=== PATIENT | female | born 1945 | race Caucasian/White ===

== ENCOUNTER 2019-04-07 15:51 | Emergency (ER) | payer OTHER ==
--- OUTSIDE RECORDS SUMMARY | 2019-04-07 15:53 | XMS REPORT ---
:1945 [facility] Address [address] [place] [place] [address] Care Team Providers Name Role Phone Unavailable Unavailable Unavailable Payers Payer Name Policy Type Policy Number Effective Date Expiration Date Problems This patient has no known problems. Allergies, Adverse Reactions, Alerts Allergy Name Allergy Status Severity Reaction(s) Onset Inactive Treating Comments Type Date Date Clinician Sulfa DA Active SV (Sulfonamide 12-05 Antibiotics) 00:00: 00 lisinopril DA Active SV 0 12-05 00:00: 00 ergocalciferol DA Active SV (vitamin D2) 12-05 00:00: 00 aspirin DA Active SV 2019-0 12-05 00:00: 00 meperidine DA Active SV 2018-0 12-05 00:00: 00 atorvastatin DA Active MO 2018-12-05 00:00: 00 [place] [address] 12-05 00:00: 00 Medications This patient has no known medications. Results Test Description Test Time Test Comments Text Results Atomic Results Result Comments BASIC METABOLIC PANEL 2019-01-04 06:09:00 Test Item Value Reference Range Comments SODIUM (test code=NA) 141 mmol/L 136-145 POTASSIUM (test code=K) 4.6 mmol/L 3.5-5.1 CHLORIDE (test code=CL) 104.0 mmol/L 98-107 CARBON DIOXIDE (test code=CO2) 31.3 mmol/L 21-32 GLUCOSE (test code=GLU) 141 mg/dL 70-110 BLOOD UREA NITROGEN (test 17 mg/dL 7-18 code=BUN) GLOMERULAR FILTRATION RATE (test 63.6 >60 Unit of measure: mL/min/1.73 code=GFR) [id number] Range:Healthy Adults >90 mL/min/1.73 m2 For Chronic Kidney Disease: Stage II Mild Decrease in GFR 60-90 Stage III Moderate Decrease in GFR 30-59 Stage IV Severe Decrease in GFR 15-29 Stage V Kidney Failure <15 CREATININE (test code=CREAT) 0.87 mg/dL 0.55-1.30 CALCIUM (test code=CA) 8.6 mg/dL 8.2-10.1 SPECIMEN COMMENT: if pt is still in the [facility] METABOLIC [id number] 06:27:00 Test Item Value Reference Range Comments SODIUM (test code=NA) 142 mmol/L 136-145 POTASSIUM (test code=K) 4.9 mmol/L 3.5-5.1 CHLORIDE (test code=CL) 105.0 mmol/L 98-107 CARBON DIOXIDE (test 30.0 mmol/L 21-32 code=CO2) GLUCOSE (test code=GLU) 143 mg/dL 70-110 BLOOD UREA NITROGEN (test 19 mg/dL 7-18 code=BUN) GLOMERULAR FILTRATION RATE 54.8 >60 Unit of measure: (test code=GFR) mL/min/1.73 [id number] Range:Healthy Adults >90 mL/min/1.73 m2 For Chronic Kidney Disease: Stage II Mild Decrease in GFR 60-90 Stage III Moderate Decrease in GFR 30-59 Stage IV Severe Decrease in GFR 15-29 Stage V Kidney Failure <15 CREATININE (test code=CREAT) 0.99 mg/dL 0.55-1.30 CALCIUM (test code=CA) 8.8 mg/dL 8.2-10.1 HGB [id number] 05:48:00 Test Item Value Reference Range Comments HEMOGLOBIN (test code=HGB) 11.1 g/dL 12-16 HEMATOCRIT (test code=HCT) 34.9 % 37-47 CBC W/AUTO [id number] 12:05:00 Test Item Value Reference Range Comments WHITE BLOOD CELL (test code=WBC) 6.5 K/mm3 5.8-11.0 RED BLOOD CELL (test code=RBC) 4.42 M/mm3 4.2-5.4 HEMOGLOBIN (test code=HGB) 13.1 g/dL 12-16 HEMATOCRIT (test code=HCT) 39.2 % 37-47 MEAN CELL VOLUME (test code=MCV) 89 fL 80-98 MEAN CELL HGB (test code=MCH) 29.6 pg 27-34 MEAN CELL HGB CONCENTRATION (test code=MCHC) 33.4 g/dL 30.8-34.1 RED CELL DISTRIBUTION WIDTH (test code=RDW) 13.2 % 11-16 PLT (test code=PLT) 231 K/mm3 130-400 MEAN PLATELET VOLUME (test code=MPV) 12.2 fL 8.9-12.1 NEUTROPHIL % (test code=NT%) 64.4 % 45-70 LYMPHOCYTE % (test code=LY%) 19.1 % 20-40 MONOCYTE % (test code=MO%) 9.5 % 3-10 EOSINOPHIL % (test code=EO%) 5.1 % 1-5 BASOPHIL % (test code=BA%) 1.4 % 0.0-1.1 NEUTROPHIL # (test code=NT#) 4.19 K/mm3 2.00-7.50 LYMPHOCYTE # (test code=LY#) 1.24 K/mm3 1.50-4.00 MONOCYTE # (test code=MO#) 0.62 K/mm3 0.2-0.8 EOSINOPHIL # (test code=EO#) 0.33 K/mm3 0.04-0.4 BASOPHIL # (test code=BA#) 0.09 K/mm3 0.02-0.10 MANUAL DIFF REQUIRED (test code=MDIFF) NO MANUAL DIFF NUCLEATED RED BLOOD CELL (test code=NRBC) 0 % 0-0 COMPREHENSIVE METABOLIC [id number] 10:56:00 Test Item Value Reference Range Comments SODIUM (test code=NA) 142 mmol/L 136-145 POTASSIUM (test code=K) 4.6 mmol/L 3.5-5.1 CHLORIDE (test code=CL) 104.0 mmol/L 98-107 CARBON DIOXIDE (test code=CO2) 32.0 mmol/L 21-32 GLUCOSE (test code=GLU) 94 mg/dL 70-110 BLOOD UREA NITROGEN (test 16 mg/dL 18 code=BUN) GLOMERULAR FILTRATION RATE 70.3 >60 Unit of measure: (test code=GFR) mL/min/1.73 [id number] Range:Healthy Adults >90 mL/min/1.73 m2 For Chronic Kidney Disease: Stage II Mild Decrease in GFR 60-90 Stage III Moderate Decrease in GFR 30-59 Stage IV Severe Decrease in GFR 15-29 Stage V Kidney Failure <15 CREATININE (test code=CREAT) 0.80 mg/dL 0.55-1.30 TOTAL PROTEIN (test code=PROT) 6.2 g/dL 6.4-8.2 ALBUMIN (test code=ALB) 3.6 g/dL 3.4-5.0 GLOBULIN (test code=GLOB) 2.6 g/dL 2.2-4.2 ALBUMIN/GLOBULIN RATIO (test 1.4 0.7-2.0 code=A/G) CALCIUM (test code=CA) 9.3 mg/dL 8.2-10.1 BILIRUBIN TOTAL (test 0.43 mg/dL 0.2-1.00 code=BILT) SGOT/AST (test code=AST) 22.0 U/L 15-37 SGPT/ALT (test code=ALT) 19.0 U/L 12-78 Please note new normal range. ALKALINE PHOSPHATASE TOTAL 48 U/L 46-116 (test code=ALKP) PROTHROMBIN [id number] 10:56:00 Test Item Value Reference Range Comments PROTHROMBIN TIME PATIENT 13.7 secs 10.1-12.5 (test code=PTP) INTERNATIONAL NORMAL RATIO 1.21 <2.0 RECOMMENDED THERAPEUTIC RANGE (test code=INR) FOR ORAL ANTICOAGULANTTREATMENT: CONDITION INRProphylaxis of venous thrombosis in 2.0 - 3.0 high-risk medical or surgical patientsTreatment of venous thrombosis 2.0 - 3.0Prevention of embolism 2.0 - 3.0Prevention of recurrent embolism, or 3.0 - 4.5 patients with mechanical prosthetic intravascular valves IS PATIENT ON ANTICOAGULANTS ? YLIST ANTICOAGULANT/ANTI PLT MEDICATION : OtherHas Lab been notified if Patient is on Heparin Drip? NOIf Yes, order CBC, OCCULT BLOOD, PT every other day NTHROMBOPLASTIN TIME [id number] 10:56:00 Test Item Value Reference Range Comments PTT ACTIVATED (test code=APTT) 29.8 secs 24.9-37.0 IS PATIENT ON ANTICOAGULANTS ? YLIST ANTICOAGULANT/ANTI PLT MEDICATION : OtherHas Lab been notified if Patient is on Heparin Drip? NOIf Yes, order CBC, OCCULT BLOOD, PT every other day N
[2019-04-07 16:22] LABS: Urine Blood TRACE (NEG); Urine Glucose NEGATIVE (NEG); Urine Protein NEGATIVE (NEG); Urine Specific Gravity 1.015 (1.005-1.030)
[2019-04-07] MEDS ORDERED: NA CHLORIDE 0.9% 500 ML ONE (16:28)
[2019-04-07] MEDS ORDERED: dilTIAZem HCL 25 MG/5 ML VIAL IV ONE (16:29)
[2019-04-07 16:33] LABS: Absolute Lymphocytes (CBC) 1.3 K/uL (0.7-4.9); Basophils % 1.4 % (0-1.3); Hematocrit 39.6 % (36.0-45.0); Lymphocytes % 15.4 % (15.3-44.8); MPV 10.6 fL (7.6-11.3); RBC Red Blood Cell Count 4.58 M/uL (3.86-4.86)
[2019-04-07 16:34] LABS: Protime INR 1.16
[2019-04-07 16:50] LABS: ALT/SGPT 22 U/L (12-78); AST/SGOT 20 U/L (15-37); Albumin 3.5 g/dL (3.4-5.0); Alkaline Phosphatase 58 U/L (45-117); BUN Blood Urea Nitrogen 20 mg/dL (7-18); Bicarbonate 25 mmol/L (21-32); Bilirubin Direct < 0.1 mg/dL (0-0.2); Bilirubin Total 0.3 mg/dL (0.2-1.0); Glucose Level 116 mg/dL (74-106); Magnesium 2.2 mg/dL (1.8-2.4); NT PRO-BNP 1007 pg/mL (<125); Potassium 3.8 mmol/L (3.5-5.1); Protein, Total 7.1 g/dL (6.4-8.2); Sodium Level 143 mmol/L (136-145); Troponin (Emerg Dept Use Only) < 0.02 ng/mL (0.0-0.045)
[2019-04-07] MEDS ORDERED: DILTIAZEM HCL 60 MG TAB PO ONE (17:00)
--- NOTE | 2019-04-07 17:23 | ER ---
Nurse's Notes [facility] Name: Freda Naylor Age: 73 yrs Sex: Female : 1945 Arrival Date: 04/07/2019 Time: 15:53 Bed 17 Private MD: Diagnosis: Atrial fibrillation and flutter;Tachycardia, unspecified-afib with rvr Presentation: 04/07 16:43 Presenting complaint: Patient states: Patient states she has been having palpitations ae4 stat started approx 10 minutes prior. Pt reports feeling short of breath. Transition of care: patient was not received from another setting of care. Onset of symptoms was April 07, 2019 at 15:45. Risk Assessment: Do you want to hurt yourself or someone else? Patient reports no desire to harm self or others. Initial Sepsis Screen: Does the patient meet any 2 criteria? HR > 90 bpm. No. Patient's initial sepsis screen is negative. Care prior to arrival: None. 16:43 Acuity: ENRIQUE 2 ae4 16:43 Method Of Arrival: Ambulatory ae4 17:38 Initial Sepsis Screen: Does the patient have a suspected source of infection? No. bp Patient's initial sepsis screen is negative. Triage Assessment: 16:37 General: Appears in no apparent distress. comfortable, obese, Behavior is cooperative, bp appropriate for age, anxious. Respiratory: Onset: The symptoms/episode began/occurred today, the patient has mild shortness of breath. Historical: - Allergies: 16:37 OxyContin; ae4 16:37 Demerol; ae4 - Home Meds: 16:37 Diltiazem Oral [Active]; Eliquis oral oral [Active]; Metoprolol Tartrate Oral [Active]; ae4 Synthroid Oral [Active]; valsartan oral oral [Active]; - PMHx: 16:37 Hypertension; Hypothyroidism; ae4 - PSHx: 16:37 Knee surgery; Cholecystectomy; Hysterectomy; ae4 - Immunization history:: Adult Immunizations up to date. - Social history:: Patient/guardian denies using alcohol, street drugs, The patient lives with family, Smoking status: Patient denies any tobacco usage or history of. - Family history:: not pertinent. - Ebola Screening: : No symptoms or risks identified at this time. Screenin:45 Abuse screen: Denies threats or abuse. Denies injuries from another. Nutritional bp screening: No deficits noted. Tuberculosis screening: No symptoms or risk factors identified. Fall Risk None identified. Assessment: 15:58 General: Appears uncomfortable, Behavior is cooperative, anxious. Pain: Denies pain. ae4 Neuro: Level of Consciousness is awake, alert, obeys commands, Oriented to person, place, time, situation, Appropriate for age. Cardiovascular: Heart tones S1 S2 present Patient's skin is warm and dry. Rhythm is atrial fibrillation. Respiratory: Reports shortness of breath at rest on exertion Airway is patent Respiratory effort is even, unlabored, shallow, Respiratory pattern is regular, symmetrical, Breath sounds are clear bilaterally. GI: No signs and/or symptoms were reported involving the gastrointestinal system. : No signs and/or symptoms were reported regarding the genitourinary system. EENT: No signs and/or symptoms were reported regarding the EENT system. Derm: Skin is pink, warm \T\ dry. Musculoskeletal: No signs and/or symptoms reported regarding the musculoskeletal system. 17:05 Reassessment: PT IN SR ON MONITOR, MED ARRIVED FROM PHARMACY AND GIVEN. NO S/S ACUTE bp DISTRESS. Vital Signs: 16:21 BP 102 / 66; Pulse 137; Resp 15; Temp 97.8(O); Pulse Ox 99% on R/A; ae4 16:28 Pulse 162; Resp 15; Pulse Ox 99% ; bp 16:43 BP 130 / 62; Pulse 102; Resp 21; Pulse Ox 98% on R/A; ae4 17:32 BP 108 / 63; Pulse 62; Resp 12; Temp 98; Pulse Ox 100% ; bp ED Course: 15:53 Patient arrived in ED. mr 16:02 Gab Whelan MD is Attending Physician. ma2 16:04 William Calle, KYLAH is Primary Nurse. bp 16:15 Inserted saline lock: 20 gauge in left antecubital area, using aseptic technique. Blood bp collected. 16:18 Basic Metabolic Panel Sent. mh5 16:18 CBC with Diff Sent. mh5 16:19 LFT's Sent. mh5 16:19 Magnesium Sent. mh5 16:19 NT PRO-BNP Sent. mh5 16:19 PT-INR Sent. 5 16:19 Troponin (emerg Dept Use Only) Sent. mh5 16:19 Initial lab(s) drawn, by ED staff, sent to lab. EKG done, by ED staff, reviewed by [email or web address] Gab Whelan MD. 16:20 Patient has correct armband on for positive identification. Placed in gown. Bed in low mh5 position. Call light in reach. Side rails up X 1. Warm blanket given. bus driver/monitor on. Pulse ox on. NIBP on. 16:45 Triage completed. ae4 17:28 XRAY Chest (1 view) In Process Unspecified. EDMS 17:38 No provider procedures requiring assistance completed. IV discontinued, intact, bp bleeding controlled, No redness/swelling at site. Pressure dressing applied. 17:39 Arm band placed on. bp Administered Medications: 16:30 Drug: NS 0.9% 500 ml Route: IV; Rate: 1 bolus; Site: left antecubital; bp 17:09 Follow up: IV Status: Completed infusion; IV Intake: 500ml bp 16:30 Drug: Diltiazem 25 mg Route: IVP; Site: left antecubital; bp 16:45 Follow up: Response: Cardiac rhythm changed; HR decreased. ae4 17:09 Drug: Diltiazem 60 mg Route: PO; bp 17:41 Follow up: Response: Marked relief of symptoms bp Intake: 17:09 IV: 500ml; Total: 500ml. bp Outcome: 17:21 Discharge ordered by . ma2 17:39 Discharged to home ambulatory. bp 17:39 Condition: stable 17:39 Discharge instructions given to patient, Instructed on discharge instructions, follow up and referral plans. medication usage, Demonstrated understanding of instructions, follow-up care, medications, Prescriptions given X 1. 17:42 Patient left the ED. bp Signatures: Dispatcher [employer] [facility] Mary Maxwell Maria 5 William Calle, RN RN bp Gab Whelan MD MD ma2 Jairon Herrera RN RN ae4 Corrections: (The following items were deleted from the chart) 16:29 16:28 BP 102 / 66; Pulse 138bpm; Resp 15bpm; Pulse Ox 99%; bp bp
--- NOTE | 2019-04-07 17:23 | EDPHYS ---
Physician Documentation [facility] Name: Freda Naylor Age: 73 yrs Sex: Female : 1945 Arrival Date: 04/07/2019 Time: 15:53 Bed 17 Private MD: ED Physician Gab Whelan HPI: 04/07 16:38 This 73 yrs old Female presents to ER via Unassigned with complaints of AFIB, ma2 Shortness Of Breath. 16:38 The patient has shortness of breath at rest. Onset: The symptoms/episode began/occurred ma2 suddenly, .5 hour(s) ago. Associated signs and symptoms: Pertinent positives: palpitation, Pertinent negatives: productive cough, diaphoresis, hemoptysis, numbness in extremities, vomiting. Severity of symptoms: At their worst the symptoms were very mild in the emergency department the symptoms are unchanged. The patient has experienced similar episodes in the past. Historical: - Allergies: 16:37 OxyContin; ae4 16:37 Demerol; ae4 - Home Meds: 16:37 Diltiazem Oral [Active]; Eliquis oral oral [Active]; Metoprolol Tartrate Oral [Active]; ae4 Synthroid Oral [Active]; valsartan oral oral [Active]; - PMHx: 16:37 Hypertension; Hypothyroidism; ae4 - PSHx: 16:37 Knee surgery; Cholecystectomy; Hysterectomy; ae4 - Immunization history:: Adult Immunizations up to date. - Social history:: Patient/guardian denies using alcohol, street drugs, The patient lives with family, Smoking status: Patient denies any tobacco usage or history of. - Family history:: not pertinent. - Ebola Screening: : No symptoms or risks identified at this time. ROS: 16:38 Constitutional: Negative for fever, chills, and weight loss. ma2 16:38 All other systems are negative. Exam: 16:38 Constitutional: This is a well developed, well nourished patient who is awake, alert, ma2 and in no acute distress. ENT: Nares patent. No nasal discharge, no septal abnormalities noted. Tympanic membranes are normal and external auditory canals are clear. Oropharynx with no redness, swelling, or masses, exudates, or evidence of obstruction, uvula midline. Mucous membranes moist. Neck: Trachea midline, no thyromegaly or masses palpated, and no cervical lymphadenopathy. Supple, full range of motion without nuchal rigidity, or vertebral point tenderness. No Meningismus. Chest/axilla: Normal chest wall appearance and motion. Nontender with no deformity. No lesions are appreciated. Cardiovascular: tachy with irregularly irregular rhythm with a normal S1 and S2. No gallops, murmurs, or rubs. Normal PMI, no JVD. No pulse deficits. Respiratory: Lungs have equal breath sounds bilaterally, clear to auscultation and percussion. No rales, rhonchi or wheezes noted. No increased work of breathing, no retractions or nasal flaring. Abdomen/GI: Soft, non-tender, with normal bowel sounds. No distension or tympany. No guarding or rebound. No evidence of tenderness throughout. MS/ Extremity: Pulses equal, no cyanosis. Neurovascular intact. Full, normal range of motion. Neuro: Awake and alert, GCS 15, oriented to person, place, time, and situation. Cranial nerves II-XII grossly intact. Motor strength 5/5 in all extremities. Sensory grossly intact. Cerebellar exam normal. Normal gait. Vital Signs: 16:21 BP 102 / 66; Pulse 137; Resp 15; Temp 97.8(O); Pulse Ox 99% on R/A; ae4 16:28 Pulse 162; Resp 15; Pulse Ox 99% ; bp 16:43 BP 130 / 62; Pulse 102; Resp 21; Pulse Ox 98% on R/A; ae4 17:32 BP 108 / 63; Pulse 62; Resp 12; Temp 98; Pulse Ox 100% ; bp MDM: 16:02 Patient medically screened. ma2 16:38 Differential diagnosis: Anemia asthma, CHF exacerbation, pneumonia, Pneumothorax. Data ma2 reviewed: vital signs, nurses notes. Counseling: I had a detailed discussion with the patient and/or guardian regarding: the historical points, exam findings, and any diagnostic results supporting the discharge/admit diagnosis, the presence of at least one elevated blood pressure reading (>120/80) during this emergency department visit, the need for outpatient follow up. Response to treatment: the patient's symptoms have resolved after treatment. 04/07 16:14 Order name: Basic Metabolic Panel; Complete Time: 17:14 bp 04/07 16:14 Order name: CBC with Diff; Complete Time: 17:14 bp 04/07 16:14 Order name: LFT's; Complete Time: 17:14 bp 04/07 16:14 Order name: Magnesium; Complete Time: 17:14 bp 04/07 16:14 Order name: NT PRO-BNP; Complete Time: 17:14 bp 04/07 16:14 Order name: PT-INR; Complete Time: 17:14 bp 04/07 16:14 Order name: Troponin (emerg Dept Use Only); Complete Time: 17:14 bp 04/07 16:14 Order name: XRAY Chest (1 view) bp 04/07 16:14 Order name: EKG; Complete Time: 16:15 bp 04/07 16:14 Order name: Cardiac monitoring; Complete Time: 16:14 bp 04/07 16:19 Order name: Urine Dipstick--Ancillary (enter results); Complete Time: 17:14 eb 04/07 16:14 Order name: EKG - Nurse/Tech; Complete Time: 16:14 bp 04/07 16:14 Order name: IV Saline Lock; Complete Time: 16:14 bp 04/07 16:14 Order name: Labs collected and sent; Complete Time: 16:14 bp 04/07 16:14 Order name: O2 Per Protocol; Complete Time: 16:14 bp 04/07 16:14 Order name: O2 Sat Monitoring; Complete Time: 16:14 bp Administered Medications: 16:30 Drug: NS 0.9% 500 ml Route: IV; Rate: 1 bolus; Site: left antecubital; bp 17:09 Follow up: IV Status: Completed infusion; IV Intake: 500ml bp 16:30 Drug: Diltiazem 25 mg Route: IVP; Site: left antecubital; bp 16:45 Follow up: Response: Cardiac rhythm changed; HR decreased. ae4 17:09 Drug: Diltiazem 60 mg Route: PO; bp 17:41 Follow up: Response: Marked relief of symptoms bp Disposition: 04/07/19 17:21 Discharged to Home. Impression: Atrial fibrillation and flutter, Tachycardia, unspecified - afib with rvr. - Condition is Stable. - Discharge Instructions: Atrial Fibrillation, [id number]. - Prescriptions for Diltiazem HCl 60 mg Oral Tablet - take 1 tablet by ORAL route 3 times per day for 2 days; 6 tablet. - Medication Reconciliation Form, Thank You Letter, Antibiotic Education, Prescription Opioid Use form. - Follow up: Private Physician; When: Tomorrow; Reason: Continuance of care. Signatures: Dispatcher [employer] William Coombs RN RN Gab Walsh MD MD ma2 Jairon Herrera RN RN ae4 Corrections: (The following items were deleted from the chart) 17:42 17:21 04/07/2019 17:21 Discharged to Home. Impression: Atrial fibrillation and flutter; bp Tachycardia, unspecified - afib with rvr. Condition is Stable. Discharge Instructions: Atrial Fibrillation, [id number]. Prescriptions for Diltiazem HCl 60 mg Oral Tablet - take 1 tablet by ORAL route 3 times per day for 2 days; 6 tablet. and Forms are Medication Reconciliation Form, Thank You Letter, Antibiotic Education, Prescription Opioid Use. Follow up: Private Physician; When: Tomorrow; Reason: Continuance of care. ma2
[2019-04-07 18:51] VITALS: BP 108/63; TEMP 98; O2SAT 100
--- NOTE | 2019-04-07 18:56 | RAD REPORT ---
EXAM DESCRIPTION: RAD - Chest Single View - 04/07/2019 5:28 pm CLINICAL HISTORY: Shortness of breath, atrial fibrillation COMPARISON: October 2013 TECHNIQUE: AP portable chest image was obtained 1708 hours . FINDINGS: No peripheral mass or consolidation. Interstitial pattern is slightly increased over the c omparison. Change is minimal but could reflect a very mild edema or infiltrate. Heart and vasculature are normal. No measurable pleural effusion and no pneumothorax. No acute bony abnormality seen. No a cute aortic findings suspected. IMPRESSION: No focal mass or consolidation peer Slight increase in the interstitial pattern from comparison could be edema or infiltrate. This is a m inimal finding.
--- NOTE | 2019-04-08 08:47 | EKG ---
Test Date: 2019-04-07 Test Time: 16:09:19 Supervisor Phosphoric Acid: [facility] MEASUREMENT RESULTS: Intervals: Rate: 159 LA: QRSD: 84 QT: 274 QTc: 445 [place]: P: LA: QRS: 37 T: 224 INTERPRETIVE STATEMENTS: Atrial fibrillation with rapid ventricular response Nonspecific ST and T wave abnormality Abnormal ECG Compared to ECG 11/16/2013 17:04:24 ST (T wave) deviation now present Sinus rhythm no longer present T-wave abnormality no longer present Electronically Signed On 04-08-19 08:47:11 AIDS NURSE by Tam Arndt
== END 2019-04-07 17:42 | disposition home or self-care (01) ==
LOC: ER 15:51
DX: I48.20 Chronic atrial fibrillation, unspecified (principal); I48.92 Unspecified atrial flutter; R00.0 Tachycardia, unspecified; Z88.6 Allergy status to analgesic agent; I10 Essential (primary) hypertension; E03.9 Hypothyroidism, unspecified
CPT/HCPCS: 96361; 93005; 85025; 80048; 36415; 83735; 85610; 80076; 81003; 84484; 83880; 71045; 96374; 99285; J7040